=== PATIENT | male | born 1940 | race Caucasian/White ===

== ENCOUNTER 2024-06-09 15:49 | Inpatient (IN) ==
[2024-06-09] MEDS ORDERED: ONDANSETRON 4 MG/2 ML VIAL IV PRN (17:59)
[2024-06-09] MEDS: morphine 2 MG/ML VIAL IV PRN (18:53)
[2024-06-09 19:16] LABS: Basophils # (Auto) 0.03 K/mcL (0.00-0.30); Basophils % (Auto) 0.2 % (0.0-2.0); Eosinophils # (Auto) 0.09 K/mcL (0.00-0.70); Eosinophils % (Auto) 0.7 % (0.0-7.0); Hematocrit 38.9 % (40.1-51.0); Hemoglobin 12.9 g/dL (13.7-17.5); Lymphocytes # (Auto) 1.73 K/mcL (1.50-4.80); Lymphocytes % (Auto) 12.8 % (15.5-49.0); Mean Cell Volume 96.8 fL (80.0-100.0); Mean Corpuscular HGB Conc 33.2 g/dL (31.0-36.0); Mean Platelet Volume 9.3 fL (8.8-12.5); Monocytes # (Auto) 1.17 K/mcL (0.10-0.90); Monocytes % (Auto) 8.6 % (1.0-12.0); Neutrophils % (Auto) 77.4 % (38.0-78.0); Platelet Count 251 K/mcL (140-440); RBC 4.02 M/mcL (4.63-6.08); Red Cell Distribution Width 13.5 % (11.5-14.5); WBC 13.5 K/mcL (4.5-11.0)
[2024-06-09 19:31] LABS: Blood Urea Nitrogen 10 mg/dL (8-23); Calcium 9.1 mg/dL (8.6-10.4); Carbon Dioxide 22 mmol/L (22-30); Chloride 106 mmol/L (96-108); Glomerular Filtration Rate 88; Glucose 107 mg/dL (70-105); Potassium 3.4 mmol/L (3.3-5.1); Sodium 142 mmol/L (133-145)
[2024-06-09] MEDS ORDERED: HYDROmorphone 1 MG/ML SYRINGE IV PRN (20:24)
[2024-06-09] MEDS ORDERED: oxyCODONE/APAP 5/325MG TABLET PO PRN (20:24)
[2024-06-09] MEDS: 0.9 % SODIUM CHLORIDE 1,000 ML IV SCH (20:41)
[2024-06-10] MEDS: ceFAZolin 2 GM in DEXTROSE 5% IN WATER 50 ML IV SCH ×2 (09:15→18:50)
[2024-06-10] MEDS ORDERED: KETAMINE 50 MG/ML Syringe IV ONE (17:36)
[2024-06-10] MEDS ORDERED: PROPOFOL 200 MG/20 ML VIAL IV ONE (17:36)
[2024-06-10] MEDS ORDERED: SUGAMMADEX SODIUM 200 MG/2 ML VIAL IV ONE (17:36)
[2024-06-10] MEDS ORDERED: fentaNYL 100 MCG/2 ML VIAL ONE (17:36)
[2024-06-10] MEDS ORDERED: HYDROmorphone 0.5 MG/0.5 ML SYRINGE ONE (17:36)
[2024-06-10] MEDS ORDERED: ROCURONIUM 10 MG/ML ML IV ONE (17:39)
[2024-06-10] MEDS ORDERED: LIDOCAINE 2% PF 5 ML VIAL ONE (18:30)
[2024-06-10] MEDS ORDERED: MAGNESIUM SULFATE 2 GM/50 ML BAG IV ONE (18:30)
[2024-06-10] MEDS ORDERED: ceFAZolin 1 GM VIAL ONE (18:41)
[2024-06-10] MEDS ORDERED: PHENYLephrine 1 MG/10 ML SYRINGE (ANEST) ONE (19:02)
[2024-06-10] MEDS ORDERED: ePHEDrine 50 MG/5 ML SYRINGE (ANEST) IV ONE (19:21)
[2024-06-10] MEDS ORDERED: fentaNYL 100 MCG/2 ML VIAL IV PRN (19:34)
[2024-06-10] MEDS ORDERED: IPRATROPIUM/ALBUTEROL 3 ML AMPUL.NEB NEB PRN (19:34)
[2024-06-10] MEDS ORDERED: ONDANSETRON 4 MG/2 ML VIAL IV PRN (19:34)
[2024-06-10] MEDS ORDERED: METHOCARBAMOL 1,000 MG/10 ML VIAL IV PRN (19:40)
[2024-06-10] MEDS ORDERED: HYDROmorphone 0.5 MG/0.5 ML SYRINGE IV PRN (19:40)
[2024-06-10] MEDS ORDERED: HYDROmorphone 1 MG/ML SYRINGE IV PRN (19:50)
[2024-06-10] MEDS ORDERED: MAGNESIUM HYDROXIDE 30 ML ORAL.SUSP PO PRN (19:50)
[2024-06-10] MEDS ORDERED: ACETAMINOPHEN 325 MG TABLET PO PRN (19:50)
[2024-06-10] MEDS ORDERED: POLYETHYLENE GLYCOL 3350 17 GM PACKET PO PRN (19:50)
[2024-06-10] MEDS ORDERED: HYDROcodone/APAP 10/325MG TABLET PO PRN (19:50)
[2024-06-10] MEDS ORDERED: BENZOCAINE/MENTHOL 1 LOZENGE PO PRN (19:50)
[2024-06-10] MEDS: TRANEXAMIC ACID 1,000 MG/10 ML VIAL IV ONE (20:20)
[2024-06-10] MEDS: KETOROLAC 15 MG/ML VIAL IV PRN (20:53)
[2024-06-10] MEDS: ACETAMINOPHEN 1,000 MG/100 ML BAG IV ONE ×2 (20:58→21:01)
[2024-06-10] MEDS: TRANEXAMIC ACID 1,000 MG/10 ML VIAL ONE (20:58)
[2024-06-10] MEDS: 0.9 % SODIUM CHLORIDE 10 ML SYRINGE IV SCH (21:00)
[2024-06-10] MEDS: SENNOSIDES 1 TABLET PO SCH (21:00)
[2024-06-10] MEDS: ASPIRIN 81 MG TAB.CHEW CHEWED SCH (21:00)
[2024-06-10] MEDS: LACTATED RINGERS 1,000 ML IV SCH (21:03)
[2024-06-10] MEDS: 0.45 % SODIUM CHLORIDE 1,000 ML IV SCH (21:03)
[2024-06-11] MEDS: ceFAZolin 1 GM VIAL IV SCH (03:24)
[2024-06-11] MEDS: FISH OIL 1,000 MG CAPSULE PO SCH (09:32)
[2024-06-11] MEDS: METOPROLOL SUCCINATE 50 MG TAB.XL.24H PO SCH (09:32)
== END 2024-06-11 10:30 | disposition home or self-care (01) | DRG 522 ==
LOC: ED 15:49 → MEDSUR 19:52
PROVIDERS: ADMIT Student in an Organized Health Care Education/Training Program; ATTEND Orthopaedic Surgery